=== PATIENT | female | born 2000 | race Caucasian/White ===

== ENCOUNTER 2025-09-05 14:34 | Outpatient (AMB) | payer OTHER, SELFPAY ==
[2025-09-05 14:44] VITALS: BP 114/82; PULSE 94; O2SAT 99; BMI 32.3
--- NOTE | 2025-09-05 14:44 | MHC.OFFVIS ---
Vital Signs 09/05/25 14:44 Height 5 ft 2 in Weight 176 lb 6 oz BMI 32.3 BP 114/82 Blood Pressure Location Rt brachial Position Sitting Pulse 94 Pulse Source Pulse Oximeter Pulse Oximetry (%) 99 Oxygen Delivery Method Room Air Intake Visit Reasons: ENP-Sleep Disturbance Intake Note: Patient presents [employer] Sleep Disturbance. Excessive sleepiness with difficulty staying asleep during the day. Patient states Snores no witnessed apnea/gasping. Sleep walks/talks. Goes to bed at 10:30pm wakes up at 7am. Wakes up 1-2times a night. Can fall sleep anywhere during the day. Naps 1hr. Mornings headaches goes away through out the day. HST done few months ago. Family history of BRANT. Accompanied by: Self / Same As Patient Allergies milk Allergy (Unknown, Verified 09/05/25 14:47) Unknown HPI Comments Details: 25 y/o female comes for an evaluation of BRANT, she is referred by her PCP. 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 She has difficulty staying asleep for 3 years now, she snores loudly denies gasping for air. She goes to bed at 10:30pm wakes up at 7am, with 1-2 bathroom breaks, and c/o sweating profusely. She is chronically fatigued despite taking naps 30min daily/ 1.5 hour weekly. Her eyes burn with blurry vision, and will move back and forth side to side. She grinds her teeth, clenches her jaw, drools excessively has neck pain with limited rom r>l. She has morning headaches last for hours and thinks it is her allergies, she take claritin and it improves. She does not drink coffee or take stimulants. She has parasomnias since childhood, she sleep walks, talks, recently she walked into mom's bedroom asking her to take the dog out for a walk, will go into the kitchen and open refrigerator door, eat a snack, mom has found food left on the table in the AM. She has acid reflux, improved since changing diet, no longer drinking OJ, or having spaghetti with tomato sauce, she takes 2 tums and this helps. RLS symptoms with bilateral numbness and discomfort which causes her to toss and turn all night. She thinks she has fatigueable nystagmus and is anemic. FH +Her dad has liver cancer, mom has lung cancer. [facility] Medical History Attention deficit disorder (ADD) Seasonal allergic rhinitis due to pollen Seasonal allergic conjunctivitis Epistaxis Adverse food reaction Yeast vaginitis Rash Elevated blood pressure reading Mild persistent asthma with (acute) exacerbation Vaginal discharge Cutaneous candidiasis Valgus deformity of foot COVID-19 Family History Mother Asthma GERD (gastroesophageal reflux disease) Migraine Lung cancer Father Liver cancer Maternal Grandmother Leukemia Paternal Grandmother Cervical cancer Social History Alcohol intake: current Patient Tobacco Use Status: Never used Tobacco e-Cigarette/Vaping Use: Never Used Physical Exam Vital Signs: Last Vital Signs Pulse 94 09/05/25 14:44 BP 114/82 09/05/25 14:44 Pulse Ox 99 09/05/25 14:44 Oxygen Delivery Method Room Air 09/05/25 14:44 BMI result Body Mass Index 32.3 Const General: cooperative, comfortable and no acute distress Nutritional Appearance: average body habitus Orientation/consciousness: patient oriented x3 HEENT Face and sinus: Yes face symmetric Teeth and gingiva: other ([place] score is 4) Eyes Pupils: Equal, round and reactive pupils present Neck Neck: Yes full ROM Resp Effort & Inspection: normal respiratory effort and able to speak in complete sentences Neuro General: patient oriented x3 and moves all extremities Cranial nerves: Yes Equal, round and reactive pupils present, Yes Normal accommodation reflex present, Yes Nystagmus not present, Yes Normal facial strength present, Yes Midline tongue present, Yes Ability to bilaterally rotate head present and Yes Ability to bilaterally elevate shoulders present Cognition (Neuro): normal cognition Gait exam (Neuro): Normal gait present and Other gait observations present (valgus deformity ) Motor exam (neuro): 5/5 motor strength present throughout and Normal motor muscle tone present throughout Deep tendon reflexes (DTR's): Right triceps reflex intensity grade: 2+, Left triceps reflex intensity grade: 2+, Rt Biceps (C5, C6): 2+, Left biceps reflex intensity grade: 2+, Right brachioradialis reflex intensity grade: 2+, Left brachioradialis reflex intensity grade: 2+, Right patellar reflex intensity grade: 2+ and Left patellar reflex intensity grade: 2+ Psych Appearance: grossly normal Mental Status: mental status grossly normal Thought process: Normal thought process present Results Reviewed Results Reviewed: HST from April 2025 [facility] is illegible. Assessment & Plan Assessment & Plan (1) Hypersomnia: Code(s): G47.10 - Hypersomnia, unspecified Category: Medical (2) Excessive daytime sleepiness: Code(s): G47.19 - Other hypersomnia Category: Medical Plan HST r/o brant Labs reviewed from [facility] April 2025. f/u in 3 months Orders: Orders RT home sleep study Today G47.19 - Other hypersomnia Patient Instructions: Sleep Hygiene provided: set a scheduled bedtime and wake time to help regulate the circadian rhythm and balance the release of pituitary hormones. Sleep in a dark room, temperatures below 68 degrees, and no devices n bed. Limit caffeinated products 6 hours prior to bed, and limit fluids 2-4 hours prior to bed. Gentle night yoga, diffusing essential oils, and playing soft music can be relaxing. Coding Level of Care Code New Pt Level 4 (37261) Diagnoses Hypersomnia G47.10 Excessive daytime sleepiness G47.19 Sleep Questionnaire Difficulty falling asleep: No Difficulty staying asleep?: Yes Number of arousals: 2-3 Snoring: Yes Witnessed apneas: No Gasping arousals: No Nocturia: No GERD: Yes Vivid dreams: Yes Acting out dreams: No Abnormal behavior in sleep: Yes Abnormal movements in sleep: Yes Morning headaches: Yes Excessive daytime sleepiness: Yes Daytime naps: Yes Restless legs: No Hallucinations: No Sleep paralysis: No Drop attacks: No CPAP: No
== END 2025-09-05 15:40 | disposition home or self-care (01) ==
LOC: HO.HSMS 14:35
PROVIDERS: PCP Internal Medicine; Visit Provider Physician Assistant Medical
DX: G47.10 Hypersomnia, unspecified (principal); G47.19 Other hypersomnia
CPT/HCPCS: 99204

== ENCOUNTER → 2025-09-05 14:34 | Outpatient (BNVA) | payer OTHER, SELFPAY | PROVIDERS: PCP Internal Medicine; Visit Provider Physician Assistant Medical | DX: G47.19 Other hypersomnia (principal) | CPT/HCPCS: 99202 ==